=== PATIENT | male | born 1980 | race Caucasian/White ===

== ENCOUNTER 2020-01-11 19:07 | Emergency (ER) | payer BC ==
[2020-01-11] MEDS ORDERED: AUGMENTIN 875-875 MG PO (20:23)
== END 2020-01-11 20:35 | disposition home or self-care (01) ==
LOC: ED 19:07
DX: S69.92XA Unspecified injury of left wrist, hand and finger(s), initial encounter (principal); W45.8XXA Other foreign body or object entering through skin, initial encounter; Y93.89 Activity, other specified; Y92.89 Other specified places as the place of occurrence of the external cause; Y99.8 Other external cause status

== ENCOUNTER → 2025-05-01 | Outpatient (CLI) | payer BC ==
[~2025-05-01] MED LIST: AUGMENTIN 875-875 MG PO
[2025-05-01 16:51] LABS: BASO # 0.0 10*3/uL (0.0-0.1); BASO % 0.5 % (0.0-1.0); EOS # 0.2 10*3/uL (0.0-0.4); EOS % 3.9 % (1.0-4.0); MEAN CELL VOLUME 91.4 fl (80.0-94.0); MEAN CORPUSCULAR HGB 31.0 pg (27.0-31.0); MEAN PLATELET VOLUME 9.9 fl (9.6-12.3); MONO # 0.5 10*3/uL (0.1-1.0); MONO % 8.4 % (3.0-9.0); NEUT # 3.3 10*3/uL (2.3-7.9); NEUT % 53.5 % (47.0-73.0); NUCLEATED RED BLOOD CELL 0.0 % (0.0-0.0); NUCLEATED RED BLOOD CELL 0.0 10*3/uL (0.0-0.0); PLATELET COUNT AUTOMATED 254 10*3/uL (130-400); RED CELL DISTRI WIDTH 11.8 % (0-14.5)
[2025-05-01 17:48] LABS: BUN 18 mg/dl (9-23); LDL CHOLESTEROL 134 mg/dL (9-159); SGPT/ALT 25 U/L (5-49)
[2025-05-01 17:50] LABS: VITAMIN D, 25-HYDROXY 38.2 ng/mL (30-100)
[2025-05-03 14:07] LABS: TESTOS, FREE 10.4 pg/mL (6.8-21.5)
== END | disposition home or self-care (01) ==
LOC: RHCWE 11:48
PROVIDERS: ATTEND Nurse Practitioner Family
DX: E66.3 Overweight (principal); R53.83 Other fatigue; R03.0 Elevated blood-pressure reading, without diagnosis of hypertension; R51.9 Headache, unspecified; Z13.220 Encounter for screening for lipoid disorders; Z76.89 Persons encountering health services in other specified circumstances; Z12.5 Encounter for screening for malignant neoplasm of prostate; Z68.27 Body mass index [BMI] 27.0-27.9, adult